=== PATIENT | male | born 1965 | race American Indian/Alaskan Native ===

== ENCOUNTER 2018-02-11 10:57 | Observation (INO) | payer OTHER ==
[2018-02-11 11:03] VITALS: BMI 39.6
[2018-02-11] MEDS ORDERED: Aluminum Hydroxide/Magnesium Hydroxide Susp (30 mL) PO STA (11:54)
[2018-02-11] MEDS ORDERED: Aluminum Hydroxide/Magnesium Hydroxide Susp (30 mL) ONE (12:05)
--- NOTE | 2018-02-11 12:13 | RAD ---
Chest x-ray single frontal view History: Chest pain. Comparison: 02/11/2018 Findings: Mild venous congestion. Tortuous aorta. Top normal heart size. Degenerative changes in the spine. Impression: Mild venous congestion. Tortuous aorta. Top normal heart size.
[2018-02-11 12:16] LABS: BASO % 0.4 % (0.0-2.0); EOS # 0.1 K/uL (0.0-0.7); EOS % 1.2 % (0.0-4.0); HEMOGLOBIN 13.7 g/dL (12.0-18.0); LYMPH # 1.7 K/uL (1.0-4.3); LYMPH % 29.7 % (20.0-40.0); MEAN CELL VOLUME 88.6 fL (80.0-94.0); MEAN CORPUSCULAR HEMOGLOBIN 29.5 pg (27.0-31.0); MEAN CORPUSCULAR HGB CONC 33.3 g/dL (33.0-37.0); MEAN PLATELET VOLUME 9.2 fL (7.2-11.7); MONO # 0.7 K/uL (0.0-0.8); MONO % 12.1 % (0.0-10.0); NEUT # 3.2 K/uL (1.8-7.0); NEUT % 56.6 % (50.0-75.0); NRBC % 0.1 % (0.0-2.0); RBC 4.63 Mil/uL (4.40-5.90); RED CELL DISTRIBUTION WIDTH 15.5 % (11.5-14.5); WHITE BLOOD COUNT 5.6 K/uL (4.8-10.8)
[2018-02-11 12:33] LABS: ALB/GLOB RATIO 1.5 (1.0-2.1); ALBUMIN 4.1 g/dL (3.5-5.0); ALT/SGPT 29 U/L (21-72); AST/SGOT 27 U/L (17-59); BLOOD UREA NITROGEN 13 mg/dL (9-20); CALCIUM 8.7 mg/dl (8.6-10.4); GFR AFRICAN-AMERICAN > 60; GFR NON-AFRICAN AMERICAN > 60; LIPASE 69 U/L (23-300)
[2018-02-11 12:38] LABS: SQUAMOUS EPITHIAL < 1 /hpf (0-5); URINE BILIRUBIN NEGATIVE (NEGATIVE); URINE BLOOD NEGATIVE (NEGATIVE); URINE CLARITY Clear (Clear); URINE COLOR Yellow (YELLOW); URINE GLUCOSE (UA) NORMAL (Normal); URINE LEUKOCYTE ESTERASE NEG Leu/uL (Negative); URINE PROTEIN NEGATIVE (NEGATIVE); URINE UROBILINOGEN NORMAL mg/dL (0.2-1.0)
[2018-02-11 12:43] LABS: B-TYPE NATRIURETIC PEPTIDE 58.7 pg/mL (0-900)
[2018-02-11] MEDS ORDERED: Sodium Chloride 0.9% 1,000 ML IV ONE (13:55)
--- NOTE | 2018-02-11 14:01 | C.PDOC ---
History Of Present Illness 52 year old male, with past medical history of HTN, aortic aneurysm, presents to ED for evaluation of chest pain that developed upon waking up this morning. Pt states that he occasionally gets chest pain but the pain is more significant and persistent this time prompting him to visit ED. Notes that pain is mid- sternal, non-radiating, 6-8/10 in severity, and is intermittent in nature. Pt states he initially felt short of breath and had associated headache. Pt admits to leg swelling, otherwise, denies nausea, vomiting, abdominal pain, fever, chills, diaphoresis, or any other associated symptoms at this time. Time Seen by Provider: 02/11/18 11:30 Chief Complaint (Nursing): Chest Pain History Per: Patient History/Exam Limitations: no limitations Onset/Duration Of Symptoms: Hrs Current Symptoms Are (Timing): Still Present Quality: "Pain" Associated Symptoms: denies: Nausea, Diaphoresis, Syncope Exacerbating Factors: None Alleviating Factors: None Recent travel outside of the [place]: No Additional History Per: Patient Past Medical History Reviewed: Historical Data, Nursing Documentation, Vital Signs Vital Signs: Last Vital Signs Temp 97.6 F 02/11/18 11:05 Pulse 56 L 02/11/18 15:09 Resp 16 02/11/18 15:09 BP 182/101 H 02/11/18 15:09 Pulse Ox 98 02/11/18 15:09 Family History: States: Unknown Family Hx - Social History Hx Alcohol Use: Yes Hx Substance Use: No - Immunization History Hx Tetanus Toxoid Vaccination: No Hx Influenza Vaccination: Yes Hx Pneumococcal Vaccination: Yes Review Of Systems Except As Marked, All Systems Reviewed And Found Negative. Constitutional: Negative for: Fever, Chills Cardiovascular: Positive for: Chest Pain, Edema. Negative for: Palpitations, Light Headedness Respiratory: Positive for: Shortness of Breath Gastrointestinal: Negative for: Nausea, Vomiting, Abdominal Pain Neurological: Positive for: Headache. Negative for: Weakness, Numbness, Dizziness Physical Exam - Physical Exam Appears: Non-toxic, No Acute Distress, Other (lethargic) Skin: Normal Color, Warm, Dry Head: Atraumatic, Normacephalic Eye(s): bilateral: Normal Inspection Nose: Normal Oral Mucosa: Moist Neck: Normal ROM, Supple Cardiovascular: Rhythm Regular (bradycardic), No Murmur Respiratory: Normal Breath Sounds, No Rales, No Rhonchi, No Wheezing Gastrointestinal/Abdominal: Soft, No Tenderness, Other (obese abdomen) Extremity: Normal ROM, Pedal Edema (+2 pitting edema) Neurological/Psych: Oriented x3, Normal Speech ED Course And Treatment - Laboratory Results Result Diagrams: 02/11/18 12:07 02/11/18 12:07 ECG: Interpreted By Me, Viewed By Me ECG Rhythm: Sinus Bradycardia Interpretation Of ECG: flip Ts in inferior leads Rate From EC (bpm) O2 Sat by Pulse Oximetry: 100 (RA) Pulse Ox Interpretation: Normal Medical Decision Making Medical Decision Making: Plan: Blood work Urinalysis CXR EKG Angio chest CT Aspirin, Tylenol, Motrin Pepcid, Maalox, IV fluids Disposition Discussed With Dr.: Varsha Bourgeois Doctor Will See Patient In The: Hospital Counseled Patient/Family Regarding: Studies Performed, Diagnosis - Disposition Disposition: HOSPITALIZED Disposition Time: 16:09 Condition: GUARDED Forms: [employer] (Ivorian) - Clinical Impression Clinical Impression: Chest pain, Hypertension, Abnormal EKG - Scribe Statement The provider has reviewed the documentation as recorded by the Scribe KP All medical record entries made by the Scribe were at my direction and personally dictated by me. I have reviewed the chart and agree that the record accurately reflects my personal performance of the history, physical exam, medical decision making, and the department course for this patient. I have also personally directed, reviewed, and agree with the discharge instructions and disposition. Decision To Admit - Pt Status Changed To: Hospital Disposition Of: Observation - . Bed Request Type: Telemetry Admitting Physician: Varsha Bourgeois Patient Diagnosis: Chest pain, Hypertension, Abnormal EKG
[2018-02-11] MEDS ORDERED: Iodixanol 320 mg/ml 150 ml Bottle IV ONE (14:24)
[2018-02-11] MEDS ORDERED: Enalaprilat 2.5 MG/2 ML IV ONE (16:07)
--- NOTE | 2018-02-11 16:10 | CP.PCM.HP ---
<Claire Fernández - Last Filed: 02/11/18 18:16> History of Present Illness - History of Present Illness History of Present Illness: History and Physical - Hospitalist Service CC: "Chest Pain" HPI: Patient is a 52 year old Male with past medical history of Aortic Aneurysm diagnosed 3 years ago, HTN who presented to the ED because of chest pain. Patient states that he woke up from his sleep this morning with a migraine which was followed by midsternal chest pain. Patient states that the pain radiated to the left side. He took a medication for the migraine with no relief in symptoms. Went back to sleep and woke up with the same symptoms. States that he felt warm and was having nausea. Chest pain is rated 6-8/10 and is intermittent in nature. Patient states that he went out to [employer] last night and had a few drinks. Also reports snorting cocaine. States that he only infrequently uses cocaine when he goes to parties. Denies dizziness, palpitations, sob, abdominal pain, urinary symptoms, changes in bowel habits. 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 Family History: Mother - Colon cancer; Father - CVA, HI, HTN, DM, ( at age 74) Present on Admission - Present on Admission Any Indicators Present on Admission: No Past Patient History - Past Social History Smoking Status: Heavy Smoker > 10 Cigarettes Daily - CARDIAC Hx Cardiac Disorders: Yes Hx Hypotension: Yes - PSYCHIATRIC Hx Substance Use: No - SURGICAL HISTORY Hx Surgeries: No - ANESTHESIA Hx Anesthesia: No Meds Allergies/Adverse Reactions: Allergies Allergy/AdvReac Type Severity Reaction Status Date / Time No Known Allergies Allergy Verified 02/11/18 11:02 Physical Exam - Constitutional Appears: Well, No Acute Distress - Head Exam Head Exam: ATRAUMATIC, NORMAL INSPECTION, NORMOCEPHALIC - Eye Exam Eye Exam: EOMI, Normal appearance, PERRL - ENT Exam ENT Exam: Mucous Membranes Moist - Neck Exam Neck exam: Positive for: Full Rom - Respiratory Exam Respiratory Exam: Clear to Auscultation Bilateral, NORMAL BREATHING PATTERN. absent: Rales, Rhonchi, Wheezes - Cardiovascular Exam Cardiovascular Exam: Bradycardia, +S1, +S2 - GI/Abdominal Exam GI & Abdominal Exam: Normal Bowel Sounds, Soft. absent: Guarding, Rebound, Rigid, Tenderness - Rectal Exam Rectal Exam: Deferred - Extremities Exam Extremities exam: Positive for: normal capillary refill, normal inspection, pedal pulses present. Negative for: calf tenderness - Back Exam Back exam: NORMAL INSPECTION - Neurological Exam Neurological exam: Alert, CN II-XII Intact, Oriented x3 - Psychiatric Exam Psychiatric exam: Normal Affect, Normal Mood - Skin Skin Exam: Dry, Normal Color, Warm Results - Vital Signs Recent Vital Signs: Last Vital Signs Temp 97.6 F 02/11/18 11:05 Pulse 56 L 02/11/18 15:09 Resp 16 02/11/18 15:09 BP 182/101 H 02/11/18 15:09 Pulse Ox 98 02/11/18 15:09 - Labs Result Diagrams: 02/11/18 12:07 02/11/18 12:07 Labs: Laboratory Results - last 24 hr 02/11/18 02/11/18 02/11/18 12:07 12:07 12:20 WBC 5.6 RBC 4.63 Hgb 13.7 Hct 41.0 MCV 88.6 MCH 29.5 MCHC 33.3 RDW 15.5 H Plt Count 167 MPV 9.2 Neut % (Auto) 56.6 Lymph % (Auto) 29.7 [place] % (Auto) 12.1 H Eos % (Auto) 1.2 Baso % (Auto) 0.4 Neut # (Auto) 3.2 Lymph # (Auto) 1.7 [place] # (Auto) 0.7 Eos # (Auto) 0.1 Baso # (Auto) 0.0 Sodium 144 Potassium 3.7 Chloride 107 Carbon Dioxide 28 Anion Gap 13 BUN 13 Creatinine 1.1 Est GFR ( Amer) > 60 Est GFR (Non-Af Amer) > 60 Random Glucose 98 Calcium 8.7 Total Bilirubin 0.4 AST 27 ALT 29 Alkaline Phosphatase 92 Total Creatine Kinase 254 H CK-MB (Mass) 1.70 Troponin I < 0.0120 NT-Pro-B Natriuret Pep 58.7 Total Protein 6.8 Albumin 4.1 Globulin 2.7 Albumin/Globulin Ratio 1.5 Lipase 69 Urine Color Yellow Urine Clarity Clear Urine pH 6.0 Ur Specific Ber[place] 1.016 Urine Protein Negative Urine Glucose (UA) Normal Urine Ketones Negative Urine Blood Negative Urine Nitrate Negative Urine Bilirubin Negative Urine Urobilinogen Normal Ur Leukocyte Esterase Neg Urine WBC (Auto) < 1 Urine RBC (Auto) < 1 Ur Squamous Epith Cells < 1 Assessment & Plan - Assessment and Plan (Free Text) Assessment: A/P: Patient is a 52 year old male with past medical history of aortic aneurysm and HTN presented to the ED with midsternal chest pain that started this morning. Patient admits to recent cocaine use last night. Chest Pain R/O ACS -Stable, afebrile -Admit to telemetry for observation -Recieved ASA 324mg PO x 1 in the ED -Will continue ASA 81mg PO daily -Initial Troponin was negative, trend DILLAN Q6Hs x 2 -F/U Hga1c, Lipid panel, TSH/Free T4, UDS -Echocardiogram ordered -EKG on admission showed sinus bradycardia with inverted T waves, no prior EKG in our system; Trend EKG Q6H x 2 -Do not give beta ortega in light of recent cocaine use -Cardiology on consult, Dr Lo, help appreciated Hypertension -Patient with elevated BPs (SBP 159-180/DBP 99-124) -Will restart Home dose Norvasc 10mg PO daily -Started on Lisinopril 5mg PO daily -Hydralazine 10mg Q6H IVP prn for SBP > 160 -Do not give beta ortega in light of recent cocaine use -Vital signs Q4H History of Ascending Aortic Aneurysm -Reports that he follow up with his PMD for monitoring -Patient counselled regards to smoking, cocaine, and hypertension -CTA completed, f/u official report -Vascular surgery consulted, help appreciated History Migraine -Tylenol 650mg PO q6H prn -CT head ordered -Neuro checks Tobacco abuse -Patient smoked 1/2 ppd for past 3-4 years -Tobacco cessation counseling provided -Patient aware to continued smoking is detrimental to his health -Offered alternative ways to cope with stress -Nicotine patch Cocaine use -Counselled to stop using cocaine, can lead to HI, cardiac arrest, arrhytmia -Patient verbalized understanding and states that he will stop -UDS ordered GI/DVT ppx: -Pepcid 20mg IVP daily -SCDs Plan discussed with Dr Varsha Fernández DO PGY-2 <Varsah Bourgeois V - Last Filed: 02/11/18 19:14> Results - Vital Signs Recent Vital Signs: Last Vital Signs Temp 97.5 F L 02/11/18 18:40 Pulse 45 L 02/11/18 18:40 Resp 22 02/11/18 18:40 BP 168/114 H 02/11/18 18:40 Pulse Ox 98 02/11/18 18:40 - Labs Result Diagrams: 02/11/18 12:07 02/11/18 12:07 Labs: Laboratory Results - last 24 hr 02/11/18 02/11/18 02/11/18 12:07 12:07 12:20 WBC 5.6 RBC 4.63 Hgb 13.7 Hct 41.0 MCV 88.6 MCH 29.5 MCHC 33.3 RDW 15.5 H Plt Count 167 MPV 9.2 Neut % (Auto) 56.6 Lymph % (Auto) 29.7 [place] % (Auto) 12.1 H Eos % (Auto) 1.2 Baso % (Auto) 0.4 Neut # (Auto) 3.2 Lymph # (Auto) 1.7 [place] # (Auto) 0.7 Eos # (Auto) 0.1 Baso # (Auto) 0.0 D-Dimer, Quantitative Sodium 144 Potassium 3.7 Chloride 107 Carbon Dioxide 28 Anion Gap 13 BUN 13 Creatinine 1.1 Est GFR ( Amer) > 60 Est GFR (Non-Af Amer) > 60 Random Glucose 98 Calcium 8.7 Total Bilirubin 0.4 AST 27 ALT 29 Alkaline Phosphatase 92 Total Creatine Kinase 254 H CK-MB (Mass) 1.70 Troponin I < 0.0120 NT-Pro-B Natriuret Pep 58.7 Total Protein 6.8 Albumin 4.1 Globulin 2.7 Albumin/Globulin Ratio 1.5 Lipase 69 TSH 3rd Generation Urine Color Yellow Urine Clarity Clear Urine pH 6.0 Ur Specific [place] 1.016 Urine Protein Negative Urine Glucose (UA) Normal Urine Ketones Negative Urine Blood Negative Urine Nitrate Negative Urine Bilirubin Negative Urine Urobilinogen Normal Ur Leukocyte Esterase Neg Urine WBC (Auto) < 1 Urine RBC (Auto) < 1 Ur Squamous Epith Cells < 1 Urine Opiates Screen Urine Methadone Screen Ur Barbiturates Screen Ur Phencyclidine Scrn Ur Amphetamines Screen U Benzodiazepines Scrn U Oth Cocaine Metabols U Cannabinoids Screen 02/11/18 02/11/18 02/11/18 17:01 17:01 18:26 WBC RBC Hgb Hct MCV MCH MCHC RDW Plt Count MPV Neut % (Auto) Lymph % (Auto) [place] % (Auto) Eos % (Auto) Baso % (Auto) Neut # (Auto) Lymph # (Auto) [place] # (Auto) Eos # (Auto) Baso # (Auto) D-Dimer, Quantitative < 200 Sodium Potassium Chloride Carbon Dioxide Anion Gap BUN Creatinine Est GFR ( Amer) Est GFR (Non-Af Amer) Random Glucose Calcium Total Bilirubin AST ALT Alkaline Phosphatase Total Creatine Kinase 253 H CK-MB (Mass) 1.76 Troponin I < 0.0120 NT-Pro-B Natriuret Pep Total Protein Albumin Globulin Albumin/Globulin Ratio Lipase TSH 3rd Generation 0.62 Urine Color Urine Clarity Urine pH Ur Specific [place] Urine Protein Urine Glucose (UA) Urine Ketones Urine Blood Urine Nitrate Urine Bilirubin Urine Urobilinogen Ur Leukocyte Esterase Urine WBC (Auto) Urine RBC (Auto) Ur Squamous Epith Cells Urine Opiates Screen Negative Urine Methadone Screen Negative Ur Barbiturates Screen Positive H Ur Phencyclidine Scrn Negative Ur Amphetamines Screen Negative U Benzodiazepines Scrn Negative U Oth Cocaine Metabols Positive H U Cannabinoids Screen Negative Attending/Attestation - Attestation I have personally seen and examined this patient.: Yes I have fully participated in the care of the patient.: Yes I have reviewed all pertinent clinical information: Yes Notes (Text): Patient seen, examined, and case discussed with medical information specialist. Patient seen and [facility] emergency room on 02/11/2018 are proximally 5 PM. Patient with a prior medical history including hypertension tobacco abuse, and thoracic ascending aneurysm which is currently being monitored by his primary care doctor about every 6 months to one year come sin for acute chest pain associated with flushing, palpitations and associated shortness of breath. Patient reports is the first time he's had this type of chest pain. When I spoke with patient he did admit to cocaine use last night while he was out drinking with friends. Patient reports he doesn't use cocaine in a regular manner and he reports he was drinking like he does not overdrink. 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 On patient did receive aspirin 324 mg 1, Vasotec 2.5 mg 1, hydrochlorothiazide 25milligrams 1, and Norvasc 10 mg 1. Patient's initial troponin is negative with possible T-wave inversions. Patient ordered for additional cardiac enzymes and EKG every 6 hours part 2. We had a florecita discussion about cocaine use including but not limited to cardiac arrest and myocardial infarction and Imelda in light of his history of aneurysm. They had a florecita discussion about tobacco use. He reports some half pack for 3-4 years which she attributes to manage stress associated with his work. He is aware of the adverse side effects of tobacco including but not limited to lung cancer. Assessment/Plan 1) Chest Pain Assessment/plan * Stable, afebrile * Admit to telemetry for observation * Recieved ASA 324mg PO x 1 in the ED * Will continue ASA 81mg PO daily * Initial Troponin was negative, trend DILLAN Q6Hs x 2 * F/U Hga1c, Lipid panel, TSH/Free T4, UDS * Echocardiogram ordered * EKG on admission showed sinus bradycardia with inverted T waves, no prior EKG in our system; Trend EKG Q6H x 2 * Do not give beta ortega in light of recent cocaine use * Cardiology on consult, Dr Lo, help appreciated * CRESENCIO: 1 5% risk of 14 days of mortality, new or recurrent HI, or severe recurrent ischemia requiring urgent revascularization * Pertinent positives: Male, hypertension, cocaine, smoking 2) Hypertension, uncontrolled Assessment/plan * Influenced by drug use * Patient with elevated BPs (SBP 159-180/DBP 99-124) * Will restart Home dose Norvasc 10mg PO daily * Started on Lisinopril 5mg PO daily * Hydralazine 10mg Q6H IVP prn for SBP > 160 * Do not give beta ortega in light of recent cocaine use 3) History of Ascending Aortic Aneurysm Assessment/plan * Reports that he follow up with his PMD for monitoring * Patient counselled regards to smoking, cocaine, and hypertension * CTA: Mild aneurysmal dilatation of the ascending thoracic aorta measuring approximately 4.7 cm greatest transverse dimension and ascending thoracic aorta exhibits normal caliber approximately 2.9 cm no evidence of aortic dissection or aortic rupture no evidence of abdominal aortic aneurysm. * Vascular surgery consulted, help appreciated 4) History of Migraine Assessment/plan * Tylenol 650mg PO q6H prn * CT head without contrast ordered light of cocaine history and uncontrolled blood pressure * Neuro checks every 4 hours 5) Tobacco abuse Assessment/plan * Patient smoked 1/2 ppd for past 3-4 years * Tobacco cessation counseling provided * Patient aware to continued smoking is detrimental to his health * Offered alternative ways to cope with stress including but not limited to yoga meditation adequate sleep * Nicotine patch 1 patch transdermal daily 6) Cocaine use Assessment/plan * Counselled to stop using cocaine, can lead to HI, cardiac arrest, arrhythmia * Patient verbalized understanding and states that he will stop * UDS ordered to confirm cocaine in any other illicit substance 7) GI/DVT ppx * Pepcid 20mg IVP daily * SCDs
[2018-02-11] MEDS ORDERED: Enalaprilat 2.5 MG/2 ML ONE (16:19)
[2018-02-11 17:40] LABS: BENZODIAZEPINES, UR NEGATIVE (NEGATIVE); OPIATES, UR NEGATIVE (NEGATIVE); PHENCYCLIDINE, UR NEGATIVE (NEGATIVE)
[2018-02-11 17:41] LABS: BARBITURATES, UR POSITIVE (NEGATIVE)
[2018-02-11 17:42] LABS: CK-MB 1.76 ng/mL (0.0-3.38)
--- NOTE | 2018-02-11 17:46 | CT ---
PROCEDURE: CT Angiography Chest, Abdomen and Pelvis with and without intravenous contrast HISTORY: hx of aortic anurysm. chest pain, bradycardia COMPARISON: None. TECHNIQUE: Contiguous axial images of the chest, abdomen and pelvis were obtained in the phase of aortic enhancement. A noncontrast enhanced CT of the chest was also obtained to evaluate for possible intramural thrombus. Coronal and sagittal reformats were generated. IV dose administered: 100 cc Visipaque 320 Radiation dose: Total exam DLP = 2467.63 mGy-cm. This CT exam was performed using one or more of the following dose reduction techniques: Automated exposure control, adjustment of the mA and/or kV according to patient size, and/or use of iterative reconstruction technique. FINDINGS: CT ANGIOGRAPHY OF THE CHEST WITH & WITHOUT CONTRAST: AORTA (CHEST AND ABDOMEN): There is mild aneurysmal dilatation of the ascending thoracic aorta measuring approximately 4.7 cm and greatest transverse dimension. The descending thoracic aorta exhibits normal caliber measuring approximately 2.9 cm. No evidence of aortic dissection or aortic rupture. No evidence of abdominal aortic or iliac artery aneurysms. Right brachiocephalic and left common carotid artery arise from a common trunk of. Great vessels are otherwise unremarkable and widely patent. No intramural thrombus identified. The celiac axis, superior mesenteric artery, inferior mesenteric artery and the renal arteries are widely patent. There is mild dilatation of the left iliac artery measuring approximately 1.5 mm. Right iliac artery measures approximately 12.6 mm. . LUNGS: Mild passive/ dependent type atelectasis both posterior lower lung coyle. MEDIASTINUM: Heart appears enlarged. No evidence of significant pericardial effusion. Pulmonary trunk unremarkable. . No significant mediastinal or hilar adenopathy. There is small hiatal hernia with slight wall thickening of the distal esophagus likely due to protrusion of gastric mucosa. Possibility of esophagitis not excluded. LYMPH NODES: As above PLEURA: Unremarkable. No pneumothorax. No pleural fluid. BONES: Minor multilevel degenerative spondylosis of the thoracic spine. OTHER FINDINGS: Minor changes of of bilateral gynecomastia. CT ANGIOGRAPHY OF THE ABDOMEN AND PELVIS WITH CONTRAST: LIVER: Unremarkable. No gross lesion or ductal dilatation. GALLBLADDER AND BILE DUCTS: Unremarkable. PANCREAS: Unremarkable. No gross lesion or ductal dilatation. SPLEEN: Unremarkable. ADRENALS: Unremarkable. No mass. KIDNEYS AND URETERS: Unremarkable. No hydronephrosis. No solid mass. VASCULATURE: Unremarkable. No aortic aneurysm. STOMACH AND BOWEL: Unremarkable. No obstruction. No gross mural thickening. Moderate amount stool seen within the large bowel consistent with fecal retention/constipation. APPENDIX: Normal-appearing appendix PERITONEUM: Unremarkable. No free fluid. No free air. LYMPH NODES: Unremarkable. No enlarged lymph nodes. BLADDER: Unremarkable. REPRODUCTIVE: Unremarkable. BONES: Minimal multilevel degenerative spondylosis of the lumbar spine. OTHER FINDINGS: None. IMPRESSION: There is mild aneurysmal dilatation of the ascending thoracic aorta measuring approximately 4.7 cm and greatest transverse dimension. The descending thoracic aorta exhibits normal caliber measuring approximately 2.9 cm. No evidence of aortic dissection or aortic rupture. No evidence of abdominal aortic aneurysm. . Minor dilatation left iliac artery
--- NOTE | 2018-02-11 22:31 | CP.PCM.CON ---
History of Present Illness - History of Present Illness History of Present Illness: Consult Note for Dr. Calderón 52M w/ PMH of Aortic Aneurysm and HTN, presented to the ED today for chest pain , likely cocaine induced. Pt had a CTA done showing a 4.7cm ascending thoracic aortic aneurysm. States his last appt with PCP in August showed a 3.7cm aneurysm. Pt states his blood pressure usually runs high even with medical management. He denies any current CP, SOB, or back pain. PMH: see above PSH: none ALL: NKDA Soc: cocaine, tobacco abuse, social drinker Review of Systems - Constitutional Constitutional: absent: Chills, Fever, Headache - EENT Eyes: absent: Blind Spots, Blurred Vision, Change in Vision, Sees Flashes, Tunnel Vision Ears: absent: Ear Discharge, Tinnitus Nose/Mouth/Throat: absent: Nasal Congestion, Nasal Discharge - Cardiovascular Cardiovascular: Chest Pain, Dyspnea, Lightheadedness. absent: Palpitations, Syncope - Respiratory Respiratory: absent: Cough, Hemoptysis - Gastrointestinal Gastrointestinal: absent: Abdominal Pain, Vomiting - Genitourinary Genitourinary: absent: Difficulty Urinating, Dysuria - Musculoskeletal Musculoskeletal: absent: Arthralgias, Myalgias - Integumentary Integumentary: absent: Changing Lesions, New Lesions - Neurological Neurological: absent: Dizziness, Numbness - Psychiatric Psychiatric: absent: Anxiety, Depression - Hematologic/Lymphatic Hematologic: absent: Easy Bleeding, Easy Bruising Past Patient History - Past Medical History & Family History Past Medical History?: Yes - Past Social History Smoking Status: Light Smoker < 10 Cigarettes Daily - CARDIAC Hx Cardiac Disorders: Yes Hx Hypertension: Yes - PULMONARY Hx Respiratory Disorders: No - NEUROLOGICAL Hx Neurological Disorder: No - HEENT Hx HEENT Problems: No - RENAL Hx Chronic Kidney Disease: No - ENDOCRINE/METABOLIC Hx Endocrine Disorders: No - HEMATOLOGICAL/ONCOLOGICAL Hx Blood Disorders: No - INTEGUMENTARY Hx Dermatological Problems: No - MUSCULOSKELETAL/RHEUMATOLOGICAL Hx Musculoskeletal Disorders: No Hx Falls: No - GASTROINTESTINAL Hx Gastrointestinal Disorders: No - GENITOURINARY/GYNECOLOGICAL Hx Genitourinary Disorders: No - PSYCHIATRIC Hx Psychophysiologic Disorder: No Hx Substance Use: Yes - SURGICAL HISTORY Hx Surgeries: No - ANESTHESIA Hx Anesthesia: No Meds Allergies/Adverse Reactions: Allergies Allergy/AdvReac Type Severity Reaction Status Date / Time No Known Allergies Allergy Verified 02/11/18 11:02 - Medications Medications: Current Medications Acetaminophen (Tylenol 325mg Tab) 650 mg PO Q6 PRN PRN Reason: Headache Amlodipine Besylate (Norvasc) 10 mg PO DAILY [facility] Last Admin: 02/11/18 17:31 Dose: 10 mg Aspirin (Aspirin Chewable) 81 mg PO DAILY [facility] Famotidine (Pepcid) 20 mg IVP DAILY [facility] Furosemide (Lasix) 40 mg IVP Q12 [facility] Hydralazine HCl (Apresoline) 10 mg IVP Q6H PRN PRN Reason: Systolic Blood Pressure Lisinopril (Zestril) 5 mg PO DAILY [facility] Nicotine (Nicoderm Cq) 1 patch TD DAILY [facility] Potassium Chloride (K-Dur 20 Meq Er Tab) 20 meq PO DAILY [facility] Rosuvastatin Calcium (Crestor) 20 mg PO HS [facility] Physical Exam - Constitutional Appears: Well, Non-toxic, No Acute Distress - Head Exam Head Exam: ATRAUMATIC, NORMAL INSPECTION, NORMOCEPHALIC - Eye Exam Eye Exam: EOMI, Normal appearance - ENT Exam ENT Exam: Mucous Membranes Moist, Normal Exam - Respiratory Exam Respiratory Exam: Clear to Auscultation Bilateral, NORMAL BREATHING PATTERN - Cardiovascular Exam Cardiovascular Exam: REGULAR RHYTHM, +S1, +S2 - GI/Abdominal Exam GI & Abdominal Exam: Normal Bowel Sounds, Soft. absent: Pulsatile Mass, Tenderness - Rectal Exam Rectal Exam: Deferred - Neurological Exam Neurological exam: Alert, Oriented x3 - Psychiatric Exam Psychiatric exam: Normal Affect, Normal Mood - Skin Skin Exam: Dry, Intact, Normal Color, Warm Results - Vital Signs Recent Vital Signs: Last Vital Signs Temp 97.5 F L 02/11/18 18:40 Pulse 54 L 02/11/18 19:37 Resp 22 02/11/18 18:40 BP 151/116 H 02/11/18 19:37 Pulse Ox 98 02/11/18 18:40 - Labs Result Diagrams: 02/11/18 12:07 02/11/18 12:07 Labs: Laboratory Results - last 24 hr 02/11/18 02/11/18 02/11/18 12:07 12:07 12:20 WBC 5.6 RBC 4.63 Hgb 13.7 Hct 41.0 MCV 88.6 MCH 29.5 MCHC 33.3 RDW 15.5 H Plt Count 167 MPV 9.2 Neut % (Auto) 56.6 Lymph % (Auto) 29.7 [place] % (Auto) 12.1 H Eos % (Auto) 1.2 Baso % (Auto) 0.4 Neut # (Auto) 3.2 Lymph # (Auto) 1.7 [place] # (Auto) 0.7 Eos # (Auto) 0.1 Baso # (Auto) 0.0 D-Dimer, Quantitative Sodium 144 Potassium 3.7 Chloride 107 Carbon Dioxide 28 Anion Gap 13 BUN 13 Creatinine 1.1 Est GFR ( Amer) > 60 Est GFR (Non-Af Amer) > 60 Random Glucose 98 Calcium 8.7 Total Bilirubin 0.4 AST 27 ALT 29 Alkaline Phosphatase 92 Total Creatine Kinase 254 H CK-MB (Mass) 1.70 Troponin I < 0.0120 NT-Pro-B Natriuret Pep 58.7 Total Protein 6.8 Albumin 4.1 Globulin 2.7 Albumin/Globulin Ratio 1.5 Lipase 69 TSH 3rd Generation Urine Color Yellow Urine Clarity Clear Urine pH 6.0 Ur Specific [place] 1.016 Urine Protein Negative Urine Glucose (UA) Normal Urine Ketones Negative Urine Blood Negative Urine Nitrate Negative Urine Bilirubin Negative Urine Urobilinogen Normal Ur Leukocyte Esterase Neg Urine WBC (Auto) < 1 Urine RBC (Auto) < 1 Ur Squamous Epith Cells < 1 Urine Opiates Screen Urine Methadone Screen Ur Barbiturates Screen Ur Phencyclidine Scrn Ur Amphetamines Screen U Benzodiazepines Scrn U Oth Cocaine Metabols U Cannabinoids Screen 02/11/18 02/11/18 02/11/18 17:01 17:01 18:26 WBC RBC Hgb Hct MCV MCH MCHC RDW Plt Count MPV Neut % (Auto) Lymph % (Auto) [place] % (Auto) Eos % (Auto) Baso % (Auto) Neut # (Auto) Lymph # (Auto) [place] # (Auto) Eos # (Auto) Baso # (Auto) D-Dimer, Quantitative < 200 Sodium Potassium Chloride Carbon Dioxide Anion Gap BUN Creatinine Est GFR ( Amer) Est GFR (Non-Af Amer) Random Glucose Calcium Total Bilirubin AST ALT Alkaline Phosphatase Total Creatine Kinase 253 H CK-MB (Mass) 1.76 Troponin I < 0.0120 NT-Pro-B Natriuret Pep Total Protein Albumin Globulin Albumin/Globulin Ratio Lipase TSH 3rd Generation 0.62 Urine Color Urine Clarity Urine pH Ur Specific [place] Urine Protein Urine Glucose (UA) Urine Ketones Urine Blood Urine Nitrate Urine Bilirubin Urine Urobilinogen Ur Leukocyte Esterase Urine WBC (Auto) Urine RBC (Auto) Ur Squamous Epith Cells Urine Opiates Screen Negative Urine Methadone Screen Negative Ur Barbiturates Screen Positive H Ur Phencyclidine Scrn Negative Ur Amphetamines Screen Negative U Benzodiazepines Scrn Negative U Oth Cocaine Metabols Positive H U Cannabinoids Screen Negative Assessment & Plan - Assessment and Plan (Free Text) Assessment: 52M w/ ascending thoracic aortic aneurysm of 4.9cm Plan: encouraged patient to stop tobacco and cocaine abuse d/w medical/cardio team about adequate BP control medical optimization due to increasing size, patient may need vascular/endovascular intervention however will discuss with Dr. Kaitlynn Arguello PGY1
--- NOTE | 2018-02-12 05:43 | CON ---
DATE: 02/12/2018 REASON FOR CONSULTATION: Chest pain. HISTORY OF PRESENT ILLNESS: The patient is a 52-year-old male, who has history of hypertension, on amlodipine, and was told in the past that he has aortic aneurysm. The patient is a who lives in [place]. He presents because of chest pain following cocaine abuse. The patient denies any history of diaphoresis and chest pain has resolved and denies any back pain. SOCIAL HISTORY: The patient is a smoker and cocaine abuser. MEDICATIONS: Hydralazine 10 mg every 6 hours p.r.n., aspirin 81 mg once a day, nicotine patch, Norvasc 10 mg once a day, Zestril 5 mg once a day, and Pepcid 20 mg twice daily. REVIEW OF SYSTEMS: No fever or chills. No vomiting or diarrhea. PHYSICAL EXAMINATION: GENERAL: The patient is a middle-aged male, who does not appear to be in acute distress. VITAL SIGNS: Blood pressure 162/115, heart rate 46, temperature 97.6, and respirations 16. HEENT: Normocephalic. NECK: No JVD. CHEST: Clear. HEART: S1 and S2, regular. ABDOMEN: Soft. EXTREMITIES: Trace edema. LABORATORY DATA: Hemoglobin and hematocrit 15.7 and 41.2. White count and platelet count are within normal limits. SMA-7 is within normal limit. Two sets of troponins are negative. TSH levels are within normal limits. Urine drug screen is positive for cocaine and barbiturates. I did reveal the EKGs, which are consistent with sinus bradycardia and consider inferolateral ischemic T-waves changes. Chest, abdomen, and pelvic CT angio reveals mild aneurysmal dilatation of the ascending thoracic aorta measuring 4.7 cm in greatest transverse dimension. The ascending thoracic aorta exhibits normal caliber measuring approximately 2.9 cm. No evidence of aortic dissection or aortic rupture. Chest x-ray: Normal cardiac silhouette and widened mediastinum, most likely related to ascending aortic aneurysm. ASSESSMENT: 1. Chest pain, consider cocaine-induced coronary spasm. 2. Aneurysmal dilatation of the ascending thoracic aorta measuring 4.7 cm. No evidence of dissection or rupture. 3. Hypertension. 4. Sinus bradycardia. RECOMMENDATIONS: Continue Zestril 5 mg daily, Norvasc 10 mg once a day, hydralazine 10 mg every 6 hours p.r.n. The patient is not a suitable candidate for beta blockers because of sinus bradycardia and recent cocaine abuse. I will administer Lasix 40 mg IV push now and daily. Obtain an echocardiogram. Adi Connor MD
[2018-02-12 07:21] LABS: BASO % 0.4 % (0.0-2.0); EOS # 0.2 K/uL (0.0-0.7); EOS % 2.6 % (0.0-4.0); HEMOGLOBIN 13.9 g/dL (12.0-18.0); LYMPH # 2.1 K/uL (1.0-4.3); LYMPH % 33.5 % (20.0-40.0); MEAN CORPUSCULAR HEMOGLOBIN 29.9 pg (27.0-31.0); MEAN CORPUSCULAR HGB CONC 33.9 g/dL (33.0-37.0); MEAN PLATELET VOLUME 9.3 fL (7.2-11.7); MONO # 0.5 K/uL (0.0-0.8); MONO % 8.8 % (0.0-10.0); NEUT # 3.4 K/uL (1.8-7.0); NEUT % 54.7 % (50.0-75.0); RBC 4.66 Mil/uL (4.40-5.90); RED CELL DISTRIBUTION WIDTH 15.7 % (11.5-14.5); WHITE BLOOD COUNT 6.2 K/uL (4.8-10.8)
[2018-02-12 07:58] LABS: ALB/GLOB RATIO 1.6 (1.0-2.1); ALBUMIN 4.2 g/dL (3.5-5.0); ALT/SGPT 24 U/L (21-72); AST/SGOT 27 U/L (17-59); BLOOD UREA NITROGEN 21 mg/dL (9-20); CALCIUM 8.7 mg/dl (8.6-10.4); GFR AFRICAN-AMERICAN > 60; GFR NON-AFRICAN AMERICAN 58; HDL CHOLESTEROL 35 mg/dL (30-70)
[2018-02-12 08:07] LABS: LDL CHOLESTEROL 85 mg/dL (0-129)
[2018-02-12] MEDS ORDERED: Potassium Chloride 20 mEq ER Tab PO ONE (08:49)
--- NOTE | 2018-02-12 08:52 | CP.PCM.PN ---
Subjective - Date & Time of Evaluation Date of Evaluation: 02/12/18 Time of Evaluation: 08:49 - Subjective Subjective: Seen and examined in his room. patient was complaining of headache and shoulder pain and wants pain medication. He wants IV pain medication not oral,c/p nausea and asking for clonidine patient doesn't remember his aortic aneurysm size. He had chest CT in [place] and [place]. [place] [facility] [place] to fly back [place]. Discussed about risk of cocaine use , uncontrolled BP including life threatening stroke and heart failure. Objective - Vital Signs/Intake and Output Vital Signs (last 24 hours): Temp Pulse Resp BP Pulse Ox 97.6 F 77 20 156/106 H 98 02/12/18 07:55 02/12/18 08:35 02/12/18 08:35 02/12/18 08:35 02/12/18 07:55 - Medications Medications: Current Medications Acetaminophen (Tylenol 325mg Tab) 650 mg PO Q6 PRN PRN Reason: Headache Amlodipine Besylate (Norvasc) 10 mg PO DAILY [facility] Last Admin: 02/11/18 17:31 Dose: 10 mg Aspirin (Aspirin Chewable) 81 mg PO DAILY [facility] Clonidine HCl (Catapres) 0.1 mg PO ONCE ONE Stop: 02/12/18 08:46 Famotidine (Pepcid) 20 mg IVP DAILY [facility] Furosemide (Lasix) 40 mg IVP Q12 [facility] Last Admin: 02/11/18 22:30 Dose: 40 mg Hydralazine HCl (Apresoline) 10 mg IVP Q6H PRN PRN Reason: Systolic Blood Pressure Last Admin: 02/12/18 06:57 Dose: 10 mg Lisinopril (Zestril) 5 mg PO DAILY [facility] Nicotine (Nicoderm Cq) 1 patch TD DAILY [facility] Last Admin: 02/11/18 21:00 Dose: Not Given Nicotine (Nicoderm Cq) 1 patch TD DAILY [facility] Potassium Chloride (K-Dur 20 Meq Er Tab) 20 meq PO DAILY [facility] Rosuvastatin Calcium (Crestor) 20 mg PO HS [facility] Last Admin: 02/11/18 22:30 Dose: 20 mg - Labs Labs: 02/12/18 07:15 02/12/18 07:15 - Constitutional Appears: Well, Non-toxic, No Acute Distress - Head Exam Head Exam: NORMAL INSPECTION - Eye Exam Eye Exam: Normal appearance - ENT Exam ENT Exam: Mucous Membranes Moist - Neck Exam Neck Exam: Full ROM - Respiratory Exam Respiratory Exam: Clear to Ausculation Bilateral, NORMAL BREATHING PATTERN - Cardiovascular Exam Cardiovascular Exam: REGULAR RHYTHM - GI/Abdominal Exam GI & Abdominal Exam: Soft, Normal Bowel Sounds - Exam External exam: Swelling (mild ankle edema) - Extremities Exam Extremities Exam: Full ROM - Back Exam Back Exam: NORMAL INSPECTION - Neurological Exam Neurological Exam: Awake, Oriented x3 - Psychiatric Exam Psychiatric exam: Normal Mood - Skin Skin Exam: Dry Assessment and Plan - Assessment and Plan (Free Text) Assessment: A/P: Patient is a 52 year old male with past medical history of aortic aneurysm and HTN presented to the ED with midsternal chest pain that started this morning. Patient admits to recent cocaine use last night. C Plan: 1.Chest Pain R/O ACS EKG on admission showed sinus bradycardia prolonged qtc Do not give beta ortega in light of recent cocaine use d/w Dr Lo,We will control his BP with current meds amlodipine,hydralazine prn,lisinopril and lasix he added clonidine possible discharge tomorrow if his BP controlled patient was asked to follow his [facility] for aortic aneurym Patient counselled regards to smoking, cocaine, and hypertension Tobacco abuse Tobacco cessation counseling provided Nicotine patch Cocaine use Counselled to stop using cocaine, can lead to GA, cardiac arrest, arrhytmia verbalized understanding and states that he will stop GI/DVT ppx: -Pepcid 20mg IVP daily -SCDs
[2018-02-12] MEDS: Potassium Chloride 20 mEq ER Tab PO SCH (09:21)
[2018-02-12] MEDS ORDERED: Oxycodone/Acetaminophen 5/325 mg Tab PO ONE (13:12)
[2018-02-12] MEDS ORDERED: Apap-Butalbital-Caffeine 325-50-40mg Tab PO PRN (14:00)
--- NOTE | 2018-02-12 21:36 | PN ---
DATE: 02/12/2018 SUBJECTIVE: The patient denies any chest pain or headache. No back pain. PHYSICAL EXAMINATION: VITAL SIGNS: Blood pressure 156/106, heart rate 77, temperature 97.6, respirations 20. HEENT: Normocephalic. CHEST: Clear. HEART: S1, S2 regular. EXTREMITIES: 1+ pitting edema. LABORATORY DATA: Today's SMA-7 is within normal limits except for potassium of 3.3 and BUN of 21. Two sets of troponins are negative. Today's hemoglobin, hematocrit, white count and platelet count are within normal limits. ASSESSMENT: 1. Uncontrolled hypertension. 2. Chest pain, myocardial infarction is ruled out. 3. Status post cocaine abuse. 4. A 4.7 cm aneurysmal dilatation of the descending thoracic aorta. 5. Hypokalemia. RECOMMENDATIONS: The patient's case was discussed with Dr. Arredondo. Continue aspirin 81 mg once a day, K-Dur 20 mEq orally once a day, Lasix 40 mg intravenously twice a day, Norvasc 10 mg once a day, and Zestril 5 mg once a day. I will start clonidine 0.1 mg b.i.d. Follow up echo. Adi Connor MD
[2018-02-13 06:56] LABS: BASO % 0.3 % (0.0-2.0); EOS # 0.2 K/uL (0.0-0.7); EOS % 2.6 % (0.0-4.0); LYMPH # 2.3 K/uL (1.0-4.3); LYMPH % 35.9 % (20.0-40.0); MEAN CELL VOLUME 88.1 fL (80.0-94.0); MEAN CORPUSCULAR HEMOGLOBIN 29.5 pg (27.0-31.0); MEAN CORPUSCULAR HGB CONC 33.5 g/dL (33.0-37.0); MEAN PLATELET VOLUME 9.2 fL (7.2-11.7); MONO # 0.7 K/uL (0.0-0.8); MONO % 10.8 % (0.0-10.0); NEUT # 3.2 K/uL (1.8-7.0); NEUT % 50.4 % (50.0-75.0); NRBC % 0.1 % (0.0-2.0); RBC 4.74 Mil/uL (4.40-5.90); RED CELL DISTRIBUTION WIDTH 15.6 % (11.5-14.5); WHITE BLOOD COUNT 6.3 K/uL (4.8-10.8)
[2018-02-13 07:27] LABS: ALB/GLOB RATIO 1.5 (1.0-2.1); ALBUMIN 3.9 g/dL (3.5-5.0); ALT/SGPT 27 U/L (21-72); AST/SGOT 24 U/L (17-59); BLOOD UREA NITROGEN 21 mg/dL (9-20); CALCIUM 8.4 mg/dl (8.6-10.4); GFR AFRICAN-AMERICAN > 60; GFR NON-AFRICAN AMERICAN > 60
--- NOTE | 2018-02-13 08:45 | CT ---
Date of service: 02/12/2018 PROCEDURE: CT HEAD WITHOUT CONTRAST. HISTORY: Migraine COMPARISON: None available. TECHNIQUE: Axial computed tomography images were obtained through the head/brain without intravenous contrast. Radiation dose: Total exam DLP = 1342 mGy-cm. This CT exam was performed using one or more of the following dose reduction techniques: Automated exposure control, adjustment of the mA and/or kV according to patient size, and/or use of iterative reconstruction technique. FINDINGS: HEMORRHAGE: No intracranial hemorrhage. BRAIN: Subtle bifrontal subcortical areas of hypoattenuation. These are of uncertain clinical etiology and may be the sequelae of chronic ischemic changes. Additional etiologies not excluded. Further evaluation with MRI may be helpful if clinically indicated. VENTRICLES: Unremarkable. No hydrocephalus. CALVARIUM: Unremarkable. PARANASAL SINUSES: Unremarkable as visualized. No significant inflammatory changes. MASTOID AIR CELLS: Unremarkable as visualized. No inflammatory changes. OTHER FINDINGS: None. IMPRESSION: Subtle bifrontal subcortical areas of hypoattenuation. These are of uncertain clinical etiology and may be the sequelae of chronic ischemic changes. Additional etiologies not excluded. Further evaluation with MRI may be helpful if clinically indicated. These findings were preliminarily reported at 9:39 p.m. on 02/12/[address] Bhavna Jarrell from [facility].
[2018-02-13 08:46] VITALS: RESP 18; TEMP 98
[2018-02-13] MEDS: Potassium Chloride 20 mEq ER Tab PO SCH (10:48)
--- NOTE | 2018-02-13 11:40 | CP.PCM.DIS ---
Provider - Provider Date of Admission: 02/11/18 16:10 Attending physician: Varsha Bourgeois DO Time Spent in preparation of Discharge (in minutes): 60 Diagnosis - Discharge Diagnosis (1) Hypertension, uncontrolled Status: Acute Hospital Course - Lab Results Lab Results: Most Recent Lab Values WBC 6.3 K/uL (4.8-10.8) 02/13/18 06:43 RBC 4.74 Mil/uL (4.40-5.90) 02/13/18 06:43 Hgb 14.0 g/dL (12.0-18.0) 02/13/18 06:43 Hct 41.7 % (35.0-51.0) 02/13/18 06:43 MCV 88.1 fL (80.0-94.0) 02/13/18 06:43 MCH 29.5 pg (27.0-31.0) 02/13/18 06:43 MCHC 33.5 g/dL (33.0-37.0) 02/13/18 06:43 RDW 15.6 % (11.5-14.5) H 02/13/18 06:43 Plt Count 178 K/uL (130-400) 02/13/18 06:43 MPV 9.2 fL (7.2-11.7) 02/13/18 06:43 Neut % (Auto) 50.4 % (50.0-75.0) 02/13/18 06:43 Lymph % (Auto) 35.9 % (20.0-40.0) 02/13/18 06:43 [place] % (Auto) 10.8 % (0.0-10.0) H 02/13/18 06:43 Eos % (Auto) 2.6 % (0.0-4.0) 02/13/18 06:43 Baso % (Auto) 0.3 % (0.0-2.0) 02/13/18 06:43 Neut # (Auto) 3.2 K/uL (1.8-7.0) 02/13/18 06:43 Lymph # (Auto) 2.3 K/uL (1.0-4.3) 02/13/18 06:43 [place] # (Auto) 0.7 K/uL (0.0-0.8) 02/13/18 06:43 Eos # (Auto) 0.2 K/uL (0.0-0.7) 02/13/18 06:43 Baso # (Auto) 0.0 K/uL (0.0-0.2) 02/13/18 06:43 D-Dimer, Quantitative < 200 ng/mlDDU (0-243) 02/11/18 18:26 Sodium 141 mmol/L (132-148) 02/13/18 06:43 Potassium 3.7 mmol/L (3.6-5.2) 02/13/18 06:43 Chloride 106 mmol/L (98-107) 02/13/18 06:43 Carbon Dioxide 25 mmol/L (22-30) 02/13/18 06:43 Anion Gap 14 (10-20) 02/13/18 06:43 BUN 21 mg/dL (9-20) H 02/13/18 06:43 Creatinine 1.1 mg/dL (0.8-1.5) 02/13/18 06:43 Est GFR ( Amer) > 60 02/13/18 06:43 Est GFR (Non-Af Amer) > 60 02/13/18 06:43 POC Glucose (mg/dL) 84 mg/dL (65-110) 02/13/18 06:11 Random Glucose 90 mg/dL (75-110) 02/13/18 06:43 Hemoglobin A1c 5.4 % (4.2-6.5) 02/11/18 16:27 Calcium 8.4 mg/dl (8.6-10.4) L 02/13/18 06:43 Phosphorus 3.4 mg/dL (2.5-4.5) 02/13/18 06:43 Magnesium 2.1 mg/dL (1.6-2.3) 02/13/18 06:43 Total Bilirubin 0.3 mg/dL (0.2-1.3) 02/13/18 06:43 AST 24 U/L (17-59) 02/13/18 06:43 ALT 27 U/L (21-72) 02/13/18 06:43 Alkaline Phosphatase 87 U/L (38-126) 02/13/18 06:43 Total Creatine Kinase 253 U/L (55-170) H 02/11/18 17:01 CK-MB (Mass) 1.76 ng/mL (0.0-3.38) 02/11/18 17:01 Troponin I < 0.0120 ng/mL (0.00-0.120) 02/11/18 17:01 NT-Pro-B Natriuret Pep 58.7 pg/mL (0-900) 02/11/18 12:07 Total Protein 6.5 g/dL (6.3-8.3) 02/13/18 06:43 Albumin 3.9 g/dL (3.5-5.0) 02/13/18 06:43 Globulin 2.6 gm/dL (2.2-3.9) 02/13/18 06:43 Albumin/Globulin Ratio 1.5 (1.0-2.1) 02/13/18 06:43 Triglycerides 103 mg/dL (0-149) 02/12/18 07:15 Cholesterol 139 mg/dL (0-199) 02/12/18 07:15 LDL Cholesterol Direct 85 mg/dL (0-129) 02/12/18 07:15 HDL Cholesterol 35 mg/dL (30-70) 02/12/18 07:15 Lipase 69 U/L (23-300) 02/11/18 12:07 TSH 3rd Generation 0.62 mIU/L (0.46-4.68) 02/11/18 17:01 Urine Color Yellow (YELLOW) 02/11/18 12:20 Urine Clarity Clear (Clear) 02/11/18 12:20 Urine pH 6.0 (5.0-8.0) 02/11/18 12:20 Ur Specific [place] 1.016 (1.003-1.030) 02/11/18 12:20 Urine Protein Negative mg/dL (NEGATIVE) 02/11/18 12:20 Urine Glucose (UA) Normal mg/dL (Normal) 02/11/18 12:20 Urine Ketones Negative mg/dL (NEGATIVE) 02/11/18 12:20 Urine Blood Negative (NEGATIVE) 02/11/18 12:20 Urine Nitrate Negative (NEGATIVE) 02/11/18 12:20 Urine Bilirubin Negative (NEGATIVE) 02/11/18 12:20 Urine Urobilinogen Normal mg/dL (0.2-1.0) 02/11/18 12:20 Ur Leukocyte Esterase Neg Emir/uL (Negative) 02/11/18 12:20 Urine WBC (Auto) < 1 /hpf (0-5) 02/11/18 12:20 Urine RBC (Auto) < 1 /hpf (0-3) 02/11/18 12:20 Ur Squamous Epith Cells < 1 /hpf (0-5) 02/11/18 12:20 Urine Opiates Screen Negative (NEGATIVE) 02/11/18 17:01 Urine Methadone Screen Negative (NEGATIVE) 02/11/18 17:01 Ur Barbiturates Screen Positive (NEGATIVE) H 02/11/18 17:01 Ur Phencyclidine Scrn Negative (NEGATIVE) 02/11/18 17:01 Ur Amphetamines Screen Negative (NEGATIVE) 02/11/18 17:01 U Benzodiazepines Scrn Negative (NEGATIVE) 02/11/18 17:01 U Oth Cocaine Metabols Positive (NEGATIVE) H 02/11/18 17:01 U Cannabinoids Screen Negative (NEGATIVE) 02/11/18 17:01 - Hospital Course Hospital Course: Patient is a 52 year old Male with past medical history of Aortic Aneurysm diagnosed 3 years ago, HTN who presented to the ED because of chest pain. Patient states that he woke up from his sleep this morning with a migraine which was followed by midsternal chest pain. Patient states that the pain radiated to the left side. He took a medication for the migraine with no relief in symptoms. Went back to sleep and woke up with the same symptoms. States that he felt warm and was having nausea. Chest pain is rated 6-8/10 and is intermittent in nature. Patient states that he went out to [facility] last night and had a few drinks. Also reports snorting cocaine. States that he only infrequently uses cocaine when he goes to parties. Denies dizziness, palpitations, sob, abdominal pain, urinary symptoms, changes in bowel habits. Patient came to [facility] complaining of chest pain. Serial ROMIs and EKGs were negative for ACS. UDS was positive for barbituates (from home Fioricet ) and cocaine (patient admits to snorting). CXR showed mild venous congestion but no acute processes. CTA showed mild aneurysmal dilation of the ascending thoracic aorta measuring 4.7cm. The descending thoracic aorta exhibits normal caliber measuring approx 2.9cm. There was no evidence of aortic dissection or aortic rupture. There was no evidence of abdominal aortic aneurysm. Records obtained from [facility] showed previous CT (07/21/16) the ascending aortic aneurysm had been 4.6cm. Head CT showed subtle bifrontal subcortical areas of hypoattenuation, uncertain etiology and may be the sequelae of chronic ischemic changes. Per radiology, possibly secondary to previous football injuries; can follow up with MRI outpatient. Per cardiology, patient resumed his home medications for hypertension, and added Lasix. However, patient refused the Lasix, so it was switched to HCTZ. Primary diagnosis: Uncontrolled Hypertension, Stable Ascending Aortic Aneurysm, Cocaine Induced Angina Pt has been cleared for discharge by Dr. Arredondo. Pt should continue all home meds, and begin the following as prescribed: Amlodipine 10mg by mouth once a day Clonidine 0.1mg by mouth twice a day Hydrochlorathiazide 12.5mg by mouth once a day Lisinopril 10mg by mouth once a day Crestor 20mg by mouth at night Patient will need to follow up with his PMD within one week for blood pressure medication review. He also needs to [facility]. Patient has been counciled on discontinuation of alcohol and drug use. He should desist with smoking as well. If symptoms worsen or return, please come back to the ER. This is a summary of the hospital course. Please refer to the EMR for more details. - Date & Time of H&P Date of H&P: 02/13/18 Time of H&P: 11:51 Discharge Exam - Head Exam Head Exam: ATRAUMATIC, NORMAL INSPECTION - Eye Exam Eye Exam: EOMI, Normal appearance - ENT Exam ENT Exam: Normal Exam - Neck Exam Neck exam: Normal Inspection - Respiratory Exam Respiratory Exam: NORMAL BREATHING PATTERN. absent: Rales, Rhonchi, Wheezes - Cardiovascular Exam Cardiovascular Exam: REGULAR RHYTHM, +S1, +S2 - GI/Abdominal Exam GI & Abdominal Exam: Normal Bowel Sounds. absent: Pulsatile Mass - Extremities Exam Extremities exam: normal capillary refill, normal inspection - Psychiatric Exam Psychiatric exam: Normal Affect - Skin Skin Exam: Dry, Intact, Normal Color, Warm Discharge Plan - Discharge Medications Prescriptions: cloNIDine [Catapres] 0.1 mg PO BID 14 Days #28 tab hydroCHLOROthiazide [Microzide] 12.5 mg PO DAILY 14 Days #14 cap Lisinopril [Zestril] 10 mg PO DAILY 14 Days #14 tab Rosuvastatin Calcium [Crestor] 20 mg PO HS 14 Days #14 tab - Follow Up Plan Condition: GUARDED Disposition: HOME/ ROUTINE Instructions: Low Salt Diet, Amlodipine, Clonidine, Hydrochlorothiazide, Lisinopril, Rosuvastatin, Hypertension (DC) Additional Instructions: Pt has been cleared for discharge by Dr. Arredondo. Pt should continue all home meds, and begin the following as prescribed: Amlodipine 10mg by mouth once a day Clonidine 0.1mg by mouth twice a day hydrochlorathiazide 12.5mg by mouth once a day Lisinopril 10mg by mouth once a day Crestor 20mg by mouth at night Patient will need to follow up with his PMD within one week for blood pressure medication review. He also needs to contact his cardiothoracic surgeon through the [facility] to follow up on his aortic aneurysm. Patient has been counciled on discontinuation of alcohol and drug use. He should desist with smoking as well. If symptoms return, please come back to the ER. Referrals: Adi Connor MD [Staff Provider] - Sukumar Calderón Jr., MD [Staff Provider] -
[2018-02-13 12:49] VITALS: O2SAT 98
[2018-02-13 14:37] VITALS: BP 146/92; PULSE 62
--- NOTE | 2018-02-13 23:24 | PN ---
DATE: 02/13/2018 SUBJECTIVE: The patient had no chest pain or shortness of breath. PHYSICAL EXAMINATION: VITAL SIGNS: Blood pressure 146/92, heart rate 62, temperature 98, respirations 18. I did review the echographic study, which revealed normal left ventricular systolic function. The case was discussed with Dr. Arredondo, who obtained the chest CT scan from 2016 from [facility], which revealed a maximum diameter of the ascending aorta to be 3.6 cm, which indicated slow progression of the aneurysm of about 1 mm over two years. The case was discussed with the patient, who has no plans to reside in [place] permanently, but he will be back and forth between [place] and [place]. I have recommended that the patient will be on hydrochlorothiazide 25 mg once a day, Norvasc at 10 mg once a day, clonidine at 0.2 mg t.i.d., and the patient will decide to follow up with the Clinic in both places, here in [place] and in [place]. The patient was strongly advised to abstain in the future from cocaine abuse. Adi Connor MD
--- NOTE | 2018-02-14 11:38 | CARD ---
APPROVED REPORT Date of service: 02/11/2018 EKG Measurement Heart [id number] <Conclusion> Sinus bradycardia Cannot rule out Anterior infarct, age undetermined T wave abnormality, consider inferior ischemia Abnormal ECG
--- NOTE | 2018-02-14 11:39 | CARD ---
APPROVED REPORT Date of service: 02/11/2018 EKG Measurement Heart [id number] <Conclusion> Sinus bradycardia Incomplete right bundle branch block Minimal voltage criteria for LVH, may be normal variant T wave abnormality, consider inferior ischemia T wave abnormality, consider anterolateral ischemia Prolonged QT Abnormal ECG
--- NOTE | 2018-02-14 11:40 | CARD ---
APPROVED REPORT Date of service: 02/11/2018 EKG Measurement Heart [id number] <Conclusion> Sinus bradycardia with premature atrial complexes T wave abnormality, consider inferior ischemia Abnormal ECG
--- NOTE | 2018-02-14 11:41 | CARD ---
APPROVED REPORT Date of service: 02/11/2018 EKG Measurement Heart [id number] <Conclusion> Sinus bradycardia Minimal voltage criteria for LVH, may be normal variant Nonspecific ST and T wave abnormality Abnormal ECG
== END 2018-02-13 15:00 | disposition home or self-care (01) ==
LOC: C.ER 10:57 → C.9E 16:10 → C.6T 17:08
PROVIDERS: ADMIT Internal Medicine; ATTEND Internal Medicine
DX: I10 Essential (primary) hypertension (principal); F17.200 Nicotine dependence, unspecified, uncomplicated; F14.10 Cocaine abuse, uncomplicated; E87.6 Hypokalemia; G43.909 Migraine, unspecified, not intractable, without status migrainosus; Z86.79 Personal history of other diseases of the circulatory system; Z79.82 Long term (current) use of aspirin
CPT/HCPCS: 36415; 70450; 71045; 71275; 74174; 80053; 80061; 81001; 82948; 83036; 83690; 83735; 83880; 84100; 84443; 84484; 85025; 85378; 93306; 96360; 96374; 99285; G0378; G0480; J0360; J1885; J1940; J7030; Q9967